=== PATIENT | female | born 1965 | race Caucasian/White ===

== ENCOUNTER → 2017-05-04 | Outpatient (CLI) | payer MEDICAID, MEDICARE ==
[~2017-05-04] MED LIST: ALBU17I; ALBU2.5I; BACT800T5 PO; DEPRESSION MED; MEDR4PAK3 PO; MS C15TA7 PO; NAPR500 PO; PENI500T PO; SYMB80AE INH; ZANTTAB9 PO
[2017-05-04 09:07] LABS: BLOOD GAS BASE EXCESS -2.2 mmol/L (-2-2); BLOOD GAS CARBOXYHEMOGLOBIN 1.5 % (0-4); BLOOD GAS HCO3 23 mmol/L (22-26); BLOOD GAS METHEMOGLOBIN 1.2 % (0-2); BLOOD GAS O2 HGB SATURATION 95 % (90-100); BLOOD GAS OXYGEN CONTENT 19.9 Vol % (12.0-20.0); BLOOD GAS PCO2 45 mmHG (38-42); BLOOD GAS PO2 100 mmHG (61-120); BLOOD GAS TOTAL HGB 14.8 G/DL (12.0-16.0); CRITICAL VALUE NO; DRAW SITE RT RADIAL; FIO2 21 %; NUMBER OF ARTERIAL PUNCTURES 1; STAT NO; TEMP CORR TO 98.6; ULNAR PULSE PRESENT
--- NOTE | 2017-05-05 08:13 | RSPPFT ---
DATE OF PROCEDURE: 05/04/17 COMMENTS: Spirometry shows FVC of 2.7 at 75% of predicted, FEV1 of 1.9 at 72%, FEV1/FVC ratio is normal. Flow is decreased at FEF 25, FEF 50, FEF 75 and FEF 25-75. There is no response after bronchodilator treatment. Lung volumes show residual volume is normal. TLC is normal. Diffusion capacity is normal. Flow volume loop indicates terminal airways disease. Room air arterial blood gases show pH of 7.3, PCO2 of 45, PO2 of 100, Saturation at 95%. 6-minute walk test shows no de-saturation. IMPRESSION: 1. Mild small airways obstructive lung disease. 2. Lung volumes are normal. 3. No response after bronchodilator treatment. 4. Diffusion capacity is normal. 5. Blood gases show normal oxygenation. 6. No desaturation with ambulation.
== END ==
LOC: PHRSP 08:27
PROVIDERS: ATTEND Specialist
DX: J44.9 Chronic obstructive pulmonary disease, unspecified (principal)
CPT/HCPCS: 36600; 82805; 94060; 94726; 94729